=== PATIENT | male | born 1955 | race Caucasian/White ===

== ENCOUNTER 2016-09-28 18:34 | Emergency (ER) | payer OTHER ==
--- NOTE | 2016-09-28 19:19 | ED CLINICAL REPORT ---
Clinical Report - Physicians/Mid Levels [facility] [address] [place] [address] 09/28/2016 18:33 [id number] Time Seen: 18:46 Sep 28 2016. Arrived- By private vehicle. Historian- patient. HISTORY OF PRESENT ILLNESS Chief Complaint: Injury to the index finger. The injury happened just prior to arrival. The patient sustained a laceration. Occurred at home. Patient is experiencing mild pain. Patient denies injury to the head. ( patient stated a laceration from a knife prior to arrival. Tetanus immunization last was about 2 years previously. Patient denies any paresthesias difficulty with movement. Denies any drainage or active bleeding.). REVIEW OF SYSTEMS The patient sustained a laceration. No tingling. All systems otherwise negative, except as recorded above. PAST HISTORY The patient's dominant hand is the right. He has not had a prior injury to the same area. Tetanus immunization status is up-to-date. SOCIAL HISTORY Current every day smoker. Alcohol use. No drug use. ADDITIONAL NOTES The nursing notes have been reviewed. PHYSICAL EXAM Vital Signs: 09/28/2016 18:46 BP: 155/89. HR: 82. RR: 18. O2 saturation: 98%. Temp: 97.9 F. Pain level now: 2/10. Appearance: Alert. Head: Head atraumatic. Neck: Normal inspection. Neck supple. CVS: Normal heart rate and rhythm. Heart sounds normal. No cardiac murmur. Respiratory: No respiratory distress. Breath sounds normal. No chest wall injury. Extremities: Right hand web space. No tenderness or laceration. Right index finger: (just distal to the pip lac 1 cm partial thickness, full extension ability, good sensation, no bleeding.). No wrist injury. Neuro, Vascular and Tendons: Vascular status intact. Motor intact. PROGRESS AND PROCEDURES Laceration Repair: Time: 19:40 Sep 28 2016. Location: right index finger. Time-out completed immediately before the procedure. Length: 1.5cm. Complexity: simple (local anesthesia used and sutured). Wound depth/shape- subcutaneous and linear. Distal neuro/vascular/tendon status normal. Tendon examined. No sensory deficit or motor deficit distally. No tendon deficit. Anesthesia provided by digital block using 0.25% Marcaine. Subcutaneous closure: interrupted 5-0 (3 nonabsorbable sutures). Post-procedure: he is stable and there are no complications. Bleeding is controlled and neuro-vascular status is intact distal to the wound. Dressing applied. Tetanus immunization up-to-date. Course of Care: small dorsal laceration with full distal range of motion and extension ability. No foreign body. No active bleeding. Good distal sensation. No signs of neurovascular compromise. Minimal tenderness, no suspect a fracture. No signs of foreign objects or signs of early infectious process. Patient is stable. Symptoms better. Disposition: Discharged. Condition: good. CLINICAL IMPRESSION Single deep laceration to the right index finger. INSTRUCTIONS Protect wound and keep wound area clean. Apply bacitracin twice daily. Sutures/alex should be removed in eight days. (Address: [address] [place] [id number] ). OTC Medications: Take OTC medications according to label instructions. Available over the counter. Acetaminophen (available over the counter): take according to label instructions. Motrin (available over the counter): take according to label instructions. Follow-up: Follow up with your doctor in days. (Electronically signed by Miranda Thomas P.A.-C 09/28/2016 19:42)
--- NOTE | 2016-09-28 19:19 | ED CLINICAL REPORT ---
Clinical Report - Physicians/Mid Levels [facility] [address] [place] [address] 09/28/2016 18:33 [id number] Time Seen: 18:46 Sep 28 2016. Arrived- By private vehicle. Historian- patient. HISTORY OF PRESENT ILLNESS Chief Complaint: Injury to the index finger. The injury happened just prior to arrival. The patient sustained a laceration. Occurred at home. Patient is experiencing mild pain. Patient denies injury to the head. ( patient stated a laceration from a knife prior to arrival. Tetanus immunization last was about 2 years previously. Patient denies any paresthesias difficulty with movement. Denies any drainage or active bleeding.). REVIEW OF SYSTEMS The patient sustained a laceration. No tingling. All systems otherwise negative, except as recorded above. PAST HISTORY The patient's dominant hand is the right. He has not had a prior injury to the same area. Tetanus immunization status is up-to-date. SOCIAL HISTORY Current every day smoker. Alcohol use. No drug use. ADDITIONAL NOTES The nursing notes have been reviewed. PHYSICAL EXAM Vital Signs: 09/28/2016 18:46 BP: 155/89. HR: 82. RR: 18. O2 saturation: 98%. Temp: 97.9 F. Pain level now: 2/10. Appearance: Alert. Head: Head atraumatic. Neck: Normal inspection. Neck supple. CVS: Normal heart rate and rhythm. Heart sounds normal. No cardiac murmur. Respiratory: No respiratory distress. Breath sounds normal. No chest wall injury. Extremities: Right hand web space. No tenderness or laceration. Right index finger: (just distal to the pip lac 1 cm partial thickness, full extension ability, good sensation, no bleeding.). No wrist injury. Neuro, Vascular and Tendons: Vascular status intact. Motor intact. PROGRESS AND PROCEDURES Laceration Repair: Time: 19:40 Sep 28 2016. Location: right index finger. Time-out completed immediately before the procedure. Length: 1.5cm. Complexity: simple (local anesthesia used and sutured). Wound depth/shape- subcutaneous and linear. Distal neuro/vascular/tendon status normal. Tendon examined. No sensory deficit or motor deficit distally. No tendon deficit. Anesthesia provided by digital block using 0.25% Marcaine. Subcutaneous closure: interrupted 5-0 (3 nonabsorbable sutures). Post-procedure: he is stable and there are no complications. Bleeding is controlled and neuro-vascular status is intact distal to the wound. Dressing applied. Tetanus immunization up-to-date. Course of Care: small dorsal laceration with full distal range of motion and extension ability. No foreign body. No active bleeding. Good distal sensation. No signs of neurovascular compromise. Minimal tenderness, no suspect a fracture. No signs of foreign objects or signs of early infectious process. Patient is stable. Symptoms better. Disposition: Discharged. Condition: good. CLINICAL IMPRESSION Single deep laceration to the right index finger. INSTRUCTIONS Protect wound and keep wound area clean. Apply bacitracin twice daily. Sutures/alex should be removed in eight days. (Address: [address] [place] [id number] ). OTC Medications: Take OTC medications according to label instructions. Available over the counter. Acetaminophen (available over the counter): take according to label instructions. Motrin (available over the counter): take according to label instructions. Follow-up: Follow up with your doctor in days. (Electronically signed by Miranda Thomas P.A.-C 09/28/2016 19:42)
--- NOTE | 2016-09-28 19:19 | ED NURSING NOTES ---
Clinical Report - Nurses [facility] [address] [place] [address] 09/28/2016 18:33 Patient: MARCIE GIBSON TRIAGE Triage time 18:46 Sep 28 2016. Acuity: LEVEL 4. 18:47 09/28/16. 18:47 09/28/16. Alert. No acute distress. ELISEO COMA SCORE: Eliseo Coma Scale: 15- eyes open spontaneously (4); best verbal response- oriented x 4 (5); best motor response- obeys commands (6). --18:50 Jaspreet Ford R.N. 18:46 09/28/16. BP: 155/89. HR: 82. RR: 18. O2 saturation: 98% on room air. Temp: 97.9 F (oral). Pain level now: 04/24. --18:50 Jaspreet Ford R.N. Weight: 98.4 kg stated. Height/Length: 73 inches Per Patient. BMI: 28.6. --18:47 Jaspreet Ford R.N. Medications NexIUM Oral. --18:48 Jaspreet Ford R.N. Medication/allergy information source: the patient. --18:50 Jaspreet Ford R.N. Allergies NKDA. --18:48 Jaspreet Ford R.N. History Arrived by private vehicle. Historian: patient. Unaccompanied. Primary physician (NGHIA). 18:47 09/28/16. This occurred just prior to arrival. Occurred at home. ( Pt cut finger while sharpening kitchen knife). 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 PAST MEDICAL HX: Tetanus status: up-to-date. Immunizations: up-to-date. SOCIAL HX: Current every day light tobacco smoker (cigarette)- less than 1/2 a pack per day. Occasional alcohol use; consumes liquor. No drug use. FALL RISK ASSESSMENT: Fall risk assessment completed. No fall risk identified. NUTRITIONAL RISK ASSESSMENT: The nutritional risk assessment revealed no deficiencies. FUNCTIONAL ASSESSMENT: Functional assessment: no impairments noted. LEARNING NEEDS ASSESSMENT: The learning needs assessment revealed no barriers. SKIN INTEGRITY ASSESSMENT: Skin integrity risk assessment completed. No skin integrity risk identified. --18:50 Jaspreet Ford R.N. Treatment PROOFSHEET CORRECTOR: Ice. --18:51 Jaspreet Ford R.N. PROBLEMS: GERD. --18:49 Jaspreet Ford R.N. ADDITIONAL SURGERIES: Back Surgery. Hernia Repair. --18:49 Jaspreet Ford R.N. Assessment 18:47 09/28/16. --18:50 Jaspreet Ford R.N. Interventions 18:47 09/28/16. 18:47 09/28/16. ID and allergy band on patient. To treatment room. --18:50 Jaspreet Ford R.N. PHYSICAL ASSESSMENT 18:51 09/28/16. Ambulatory to room. GENERAL / NEURO / PSYCH: Alert. Oriented X 4. Appears in no acute distress. RESPIRATORY: Respirations not labored. EXTREMITIES: Right index finger: laceration. SKIN: Skin is warm and dry. --18:51 Jaspreet Ford R.N. NURSING PROGRESS NOTES 18:51 09/28/16. Reassurance given. Two patient identifiers checked. Call light placed in reach. Side rails up x 2. Bed placed in lowest position. Brakes of bed on. --18:51 Jaspreet Ford R.N. 18:51 09/28/16. Patient ready for evaluation- chart flagged and notification provided. --18:51 Jaspreet Ford R.N. 18:58 09/28/16. ( Soaking right hand). --18:58 Jaspreet Ford R.N. 19:06 09/28/16. Care transferred and report given. --19:06 Jaspreet Ford R.N. Applied dressing consisting of 4x4 gauze, following the application of antibiotic ointment (bacitracin). Secured with tape. --19:26 Heena Stewart R.N. DISPOSITION / DISCHARGE Departure time: 1921. Condition at departure: improved and stable. No learning barriers present. Discharge instructions provided and reviewed with the patient. Reviewed wound care instructions. Activity restrictions reviewed (keep wound clean and dry). Follow up contact number [phone]. Patient verbalized understanding. Written instructions provided in Sami. The patient was discharged home and unaccompanied at time of discharge. He left the Emergency Department ambulatory and via private vehicle. Patient driving. --19:28 Heena Stewart R.N. 19:26 09/28/16. BP: deferred. HR: deferred. RR: deferred. O2 saturation: deferred. Temp: deferred. Pain level now deferred. --19:28 Heena Stewart R.N. Locked/Released at 09/28/2016 19:31 by Heena Stewart R.N.
--- NOTE | 2016-09-28 19:19 | ED NURSING NOTES ---
Clinical Report - Nurses [facility] [address] [place] [address] 09/28/2016 18:33 Patient: MARCIE GIBSON TRIAGE Triage time 18:46 Sep 28 2016. Acuity: LEVEL 4. 18:47 09/28/16. 18:47 09/28/16. Alert. No acute distress. ELISEO COMA SCORE: Eliseo Coma Scale: 15- eyes open spontaneously (4); best verbal response- oriented x 4 (5); best motor response- obeys commands (6). --18:50 Jaspreet Ford R.N. 18:46 09/28/16. BP: 155/89. HR: 82. RR: 18. O2 saturation: 98% on room air. Temp: 97.9 F (oral). Pain level now: 04/24. --18:50 Jaspreet Ford R.N. Weight: 98.4 kg stated. Height/Length: 73 inches Per Patient. BMI: 28.6. --18:47 Jaspreet Ford R.N. Medications NexIUM Oral. --18:48 Jaspreet Ford R.N. Medication/allergy information source: the patient. --18:50 Jaspreet Ford R.N. Allergies NKDA. --18:48 Jaspreet Ford R.N. History Arrived by private vehicle. Historian: patient. Unaccompanied. Primary physician (NGHIA). 18:47 09/28/16. This occurred just prior to arrival. Occurred at home. ( Pt cut finger while sharpening kitchen knife). Treatment PROTECTIVE SIGNAL OPERATOR: None. PAST MEDICAL HX: Tetanus status: up-to-date. Immunizations: up-to-date. SOCIAL HX: Current every day light tobacco smoker (cigarette)- less than 1/2 a pack per day. Occasional alcohol use; consumes liquor. No drug use. FALL RISK ASSESSMENT: Fall risk assessment completed. No fall risk identified. NUTRITIONAL RISK ASSESSMENT: The nutritional risk assessment revealed no deficiencies. FUNCTIONAL ASSESSMENT: Functional assessment: no impairments noted. LEARNING NEEDS ASSESSMENT: The learning needs assessment revealed no barriers. SKIN INTEGRITY ASSESSMENT: Skin integrity risk assessment completed. No skin integrity risk identified. --18:50 Jaspreet Ford R.N. Treatment PROTECTIVE SIGNAL OPERATOR: Ice. --18:51 Jaspreet Ford R.N. PROBLEMS: GERD. --18:49 Jaspreet Ford R.N. ADDITIONAL SURGERIES: Back Surgery. Hernia Repair. --18:49 Jaspreet Ford R.N. Assessment 18:47 09/28/16. --18:50 Jaspreet Ford R.N. Interventions 18:47 09/28/16. 18:47 09/28/16. ID and allergy band on patient. To treatment room. --18:50 Jaspreet Ford R.N. PHYSICAL ASSESSMENT 18:51 09/28/16. Ambulatory to room. GENERAL / NEURO / PSYCH: Alert. Oriented X 4. Appears in no acute distress. RESPIRATORY: Respirations not labored. EXTREMITIES: Right index finger: laceration. SKIN: Skin is warm and dry. --18:51 Jaspreet Ford R.N. NURSING PROGRESS NOTES 18:51 09/28/16. Reassurance given. Two patient identifiers checked. Call light placed in reach. Side rails up x 2. Bed placed in lowest position. Brakes of bed on. --18:51 Jaspreet Ford R.N. 18:51 09/28/16. Patient ready for evaluation- chart flagged and notification provided. --18:51 Jaspreet Ford R.N. 18:58 09/28/16. ( Soaking right hand). --18:58 Jaspreet Ford R.N. 19:06 09/28/16. Care transferred and report given. --19:06 Jaspreet Ford R.N. Applied dressing consisting of 4x4 gauze, following the application of antibiotic ointment (bacitracin). Secured with tape. --19:26 Heena Stewart R.N. DISPOSITION / DISCHARGE Departure time: 1921. Condition at departure: improved and stable. No learning barriers present. Discharge instructions provided and reviewed with the patient. Reviewed wound care instructions. Activity restrictions reviewed (keep wound clean and dry). Follow up contact number [phone]. Patient verbalized understanding. Written instructions provided in Greek. The patient was discharged home and unaccompanied at time of discharge. He left the Emergency Department ambulatory and via private vehicle. Patient driving. --19:28 Heena Stewart R.N. 19:26 09/28/16. BP: deferred. HR: deferred. RR: deferred. O2 saturation: deferred. Temp: deferred. Pain level now deferred. --19:28 Heena Stewart R.N. Locked/Released at 09/28/2016 19:31 by Heena Stewart R.N.
--- NOTE | 2016-09-28 19:42 | ED MED RECONCILIATION SUMMARY ---
Patient: MARCIE GIBSON Medication Reconciliation Report [facility] VisitID: [id number] [address] [place] [address] 61y, M Registration Date/Time: 09/28/2016 Weight: 98.4 kg Height/Length: 73 in. BMI: 28.6 ALLERGIES: NKDA The patient's Home Medications are listed below: THE FOLLOWING MEDICATIONS NEED TO BE RECONCILED: NexIUM Oral The source(s) of the original Home Medication information: patient The following Medications were given to the patient in the Emergency Department: None. The following Medications were prescribed to the patient: Take OTC medications according to label instructions. Available over the counter. -- Miranda Thomas, P.A.-C Acetaminophen (available over the counter): take according to label instructions. -- Miranda Thomas, P.A.-C Motrin (available over the counter): take according to label instructions. -- Miranda Thomas, P.A.-C
--- NOTE | 2016-09-28 19:42 | ED MED RECONCILIATION SUMMARY ---
Patient: MARCIE GIBSON Medication Reconciliation Report [facility] VisitID: [id number] [address] [place] [address] 61y, M Registration Date/Time: 09/28/2016 Weight: 98.4 kg Height/Length: 73 in. BMI: 28.6 ALLERGIES: NKDA The patient's Home Medications are listed below: THE FOLLOWING MEDICATIONS NEED TO BE RECONCILED: NexIUM Oral The source(s) of the original Home Medication information: patient The following Medications were given to the patient in the Emergency Department: None. The following Medications were prescribed to the patient: Take OTC medications according to label instructions. Available over the counter. -- Miranda Thomas, P.A.-C Acetaminophen (available over the counter): take according to label instructions. -- Miranda Thomas, P.A.-C Motrin (available over the counter): take according to label instructions. -- Miranda Thomas, P.A.-C
--- NOTE | 2016-09-28 19:42 | ED MAR SUMMARY ---
..... Medication Administration Record [facility] [address] [place], [place] [id number] Patient: MARCIE GIBSON Visit ID: [id number] 61y, M Weight: 98.4 kg Height/Length: 73 in BMI: 28.6 ALLERGIES: NKDA
--- NOTE | 2016-09-28 19:42 | ED MAR SUMMARY ---
..... Medication Administration Record [facility] [address] [place], [place] [id number] Patient: MARCIE GIBSON Visit ID: [id number] 61y, M Weight: 98.4 kg Height/Length: 73 in BMI: 28.6 ALLERGIES: NKDA
--- NOTE | 2016-09-28 19:42 | ED DISCHARGE INSTRUCTIONS ---
Patient: MARCIE GIBSON General Instructions [facility] VisitID: [id number] [place] [address] 61y, M Registration Date/Time: 09/28/2016 Single deep laceration to the right index finger. INSTRUCTIONS Protect wound and keep wound area clean. Apply bacitracin twice daily. Sutures/santa should be removed in eight days. (Address: [place] [address] ). OTC Medications: Take OTC medications according to label instructions. Available over the counter. Acetaminophen (available over the counter): take according to label instructions. Motrin (available over the counter): take according to label instructions. Follow-up: Follow up with your doctor in days. ADDITIONAL INFORMATION Laceration, Extremity (Sutures, Santa, Or Tape) A laceration is a cut through the skin. This will usually require stitches (sutures) or santa if it is deep. Minor cuts may be treated with surgical tape closures. Home care The following guidelines will help you care for your laceration at home: Keep the wound clean and dry. If a bandage was applied and it becomes wet or dirty, replace it. Otherwise, leave it in place for the first 24 hours, then change it once a day or as directed. If stitches or santa were used, clean the wound daily: After removing the bandage, wash the area with soap and water. Use a wet cotton swab to loosen and remove any blood or crust that forms. After cleaning, keep the wound clean and dry. Talk with your doctor before applying any antibiotic ointment to the wound. Reapply the bandage. You may remove the bandage to shower as usual after the first 24 hours, but do not soak the area in water (no swimming) until the stitches or santa are removed. If surgical tape closures were used, keep the area clean and dry. If it becomes wet, blot it dry with a towel. The doctor may prescribe an antibiotic cream or ointment to prevent infection. Do not stop taking this medication until you have finished the prescribed course or the doctor tells you to stop. The doctor may also prescribe medications for pain. Follow the doctors instructions for taking these medications. If you have chronic liver or kidney disease or ever had a stomach ulcer or GI bleeding, talk with your doctor before using these medicines. Follow-up care Follow up with your health care provider. Most skin wounds heal within ten days. However, an infection may sometimes occur despite proper treatment. Therefore, check the wound daily for the signs of infection listed below. Stitches and santa should be removed within 714 days. If surgical tape closures were used, you may remove them after 10 days, if they have not fallen off by then. Notify your doctor if you notice persistent numbness or weakness in the injured extremity. (Note:A radiologist will review any X-rays that were taken. We will notify you of any new findings that may affect your care.) When to seek medical care Get prompt medical attention if any of these occur: Increasing pain in the wound Redness, swelling, or pus coming from the wound Fever of 100.4F (38C) or higher, or as directed by your health care provider If stitches or santa come apart or fall out before your next appointment If the surgical tape closures fall off within seven days, or the wound edges re-open Bleeding not controlled by direct pressure Laceration (All Closures) Alaceration is a cut through the skin. This will usually require stitches (sutures) or santa if it is deep. Minor cuts may be treated with a surgical tape closure orskin glue. Home care The following guidelines will help you care for your laceration at home: Extremity, face, or trunk wounds Keep the wound clean and dry. If a bandage was applied and it becomes wet or dirty, replace it. Otherwise, leave it in place for the first 24 hours. If stitches or santa were used, clean the wound daily. After removing the bandage, wash the area with soap and water. Use a wet cotton swab to loosen and remove any blood or crust that forms. The doctor may prescribe an antibiotic cream or ointment to prevent infection. Do not stop taking this medication until you have finished the prescribed course or the doctor tells you to stop. The doctor may also prescribe medications for pain. Follow the doctors instructions for taking these medications. You may remove the bandage to shower as usual after the first 24 hours, but do not soak the area in water (no swimming) until the stitches or santa are removed. If surgical tape was used, keep the area clean and dry. If it becomes wet, blot it dry with a towel. If skin glue was used, do not scratch, rub, or pick at the adhesive film. Do not place tape directly over the film. Do not apply liquid, ointment, or creams to the wound while the film is in place. Do not clean the wound with peroxide and do not apply ointments. Avoid activities that cause heavy sweating until the film has fallen off. Protect the wound from prolonged exposure to sunlight or tanning lamps. You may shower as usual but do not soak the wound in water (no baths or swimming). The film will fall off by itself in 510 days. Scalp wounds During the first two days, you may carefully rinse your hair in the shower to remove blood, glass or dirt particles. After two days, you may shower and shampoo your hair normally. Do not soak your scalp in the tub or go swimming until the stitches or santa have been removed. Talk with your doctor before applying any antibiotic ointment to the wound. Mouth wounds Eat soft foods to reduce pain. If the cut is inside of your mouth, clean by rinsing after each meal and at bedtime with a mixture of equal parts water and hydrogen peroxide (do not swallow!). Or, you can use a cotton swab to directly apply hydrogen peroxide onto the cut. Mouth wounds can be painful when eating. You may use an [id number] local numbing solution for pain relief. If this is not available, you may use any numbing solution for teething babies. You may apply this directly to the sores with a cotton-tip swab or with your finger. Follow-up care Follow up with your health care provider. Most skin wounds heal within ten days. Mouth and facial wounds heal within five days. However, even with proper treatment, a wound infection may sometimes occur. Therefore, you should check the wound daily for signs of infection listed below. Stitches should be removed from the face within five days; stitches and santa should be removed from other parts of the body within 714 days. If dissolving stitches were used in the mouth, these will fall out or dissolve without the need for removal. If tape closures were used, remove them yourself if they have not fallen off after 7 days. Ifskin glue was used, the film will fall off by itself in 510 days. When to seek medical care Get prompt medical attention if any of these occur: Bleeding not controlled by direct pressure Signs of infection, including increasing pain in the wound, increasing wound redness or swelling, or pus coming from the wound Fever of 100.4F (38C) or higher, or as directed by your health care provider Stitches or santa come apart or fall out or surgical tape falls off before 7 days Wound edges re-open Laceration, Extremity (Sutures, Santa, Or Tape) A laceration is a cut through the skin. This will usually require stitches (sutures) or santa if it is deep. Minor cuts may be treated with surgical tape closures. Home care The following guidelines will help you care for your laceration at home: Keep the wound clean and dry. If a bandage was applied and it becomes wet or dirty, replace it. Otherwise, leave it in place for the first 24 hours, then change it once a day or as directed. If stitches or santa were used, clean the wound daily: After removing the bandage, wash the area with soap and water. Use a wet cotton swab to loosen and remove any blood or crust that forms. After cleaning, keep the wound clean and dry. Talk with your doctor before applying any antibiotic ointment to the wound. Reapply the bandage. You may remove the bandage to shower as usual after the first 24 hours, but do not soak the area in water (no swimming) until the stitches or santa are removed. If surgical tape closures were used, keep the area clean and dry. If it becomes wet, blot it dry with a towel. The doctor may prescribe an antibiotic cream or ointment to prevent infection. Do not stop taking this medication until you have finished the prescribed course or the doctor tells you to stop. The doctor may also prescribe medications for pain. Follow the doctors instructions for taking these medications. If you have chronic liver or kidney disease or ever had a stomach ulcer or GI bleeding, talk with your doctor before using these medicines. Follow-up care Follow up with your health care provider. Most skin wounds heal within ten days. However, an infection may sometimes occur despite proper treatment. Therefore, check the wound daily for the signs of infection listed below. Stitches and santa should be removed within 714 days. If surgical tape closures were used, you may remove them after 10 days, if they have not fallen off by then. Notify your doctor if you notice persistent numbness or weakness in the injured extremity. (Note:A radiologist will review any X-rays that were taken. We will notify you of any new findings that may affect your care.) When to seek medical care Get prompt medical attention if any of these occur: Increasing pain in the wound Redness, swelling, or pus coming from the wound Fever of 100.4F (38C) or higher, or as directed by your health care provider If stitches or santa come apart or fall out before your next appointment If the surgical tape closures fall off within seven days, or the wound edges re-open Bleeding not controlled by direct pressure You have been given the following additional information: Laceration, Extrem (Suture, Staple, Or Tape) Laceration, All Laceration, Extrem (Suture, Staple, Or Tape) (Electronically signed by Miranda Thomas P.A.-C 09/28/2016 19:42)
== END 2016-09-28 19:22 | disposition home or self-care (01) ==
LOC: ED SRH 18:34
DX: S61.210A Laceration without foreign body of right index finger without damage to nail, initial encounter (principal); W26.0XXA Contact with knife, initial encounter; Y93.9 Activity, unspecified; Y92.019 Unspecified place in single-family (private) house as the place of occurrence of the external cause; Y99.9 Unspecified external cause status; K21.9 Gastro-esophageal reflux disease without esophagitis; Z79.899 Other long term (current) drug therapy; F17.210 Nicotine dependence, cigarettes, uncomplicated